=== PATIENT | female | born 1960 | race Two or more races ===

== ENCOUNTER 2022-02-12 07:32 | Emergency (ER) | payer MEDICARE, OTHER ==
[~2022-02-12] VITALS: Ht 152.4 cm; Wt 90.7 kg
[2022-02-12 07:32] VITALS: BP 159/95
--- NOTE | 2022-02-12 07:42 | NUR ---
BIBS C/O FEVER OF 104, HEADACHE, AND NON RADIATING CHEST PAIN SINCE SATURDAY. AAOX4, BREATHING EVEN AND UNLABORED, AFEBRILE UPON ADMISSION. VS STABLE. WILL CONTINUE TO MONITOR.
[2022-02-12] MEDS ORDERED: BENZ-13 PO (07:50)
--- NOTE | 2022-02-12 08:01 | NUR ---
COVID SAMPLE OBTAINED AND SENT TO LAB
--- NOTE | 2022-02-12 08:15 | NUR ---
Patient discharged to home in stable condition. Written and verbal after care instructions given. Patient verbalizes understanding of instruction.
== END 2022-02-12 08:16 | disposition home or self-care (01) ==
LOC: ER 07:45
DX: U07.1 COVID-19 (principal); I10 Essential (primary) hypertension; M19.90 Unspecified osteoarthritis, unspecified site
CPT/HCPCS: C9803; U0003

== ENCOUNTER 2022-03-11 08:46 | Emergency (ER) | payer MEDICARE, OTHER ==
[~2022-03-11] VITALS: Ht 152.4 cm; Wt 90.7 kg
[~2022-03-11 08:46] MED LIST: BENZ-13 PO
[2022-03-11 08:56] VITALS: BP 134/75
[2022-03-11] MEDS ORDERED: HYDROCODONE/APAP 5/325MG TABLET PO ONE (09:30)
--- NOTE | 2022-03-11 09:34 | NUR ---
CALLED [employer], STATED "HE IS ON HIS WAY".
[2022-03-11] MEDS ORDERED: HYDROCODONE/APAP 5/325MG TABLET ONE (09:35)
--- NOTE | 2022-03-11 09:38 | NUR ---
US TECH AT BEDSIDE FOR ULTRASOUND
[2022-03-11] MEDS ORDERED: HYDR-4209 PO (09:55)
--- NOTE | 2022-03-11 10:00 | NUR ---
Patient discharged to home in stable condition. Written and verbal after care instructions given. Patient verbalizes understanding of instruction.
== END 2022-03-11 10:05 | disposition home or self-care (01) ==
LOC: ER 09:13
DX: S86.912A Strain of unspecified muscle(s) and tendon(s) at lower leg level, left leg, initial encounter (principal); I10 Essential (primary) hypertension; M19.90 Unspecified osteoarthritis, unspecified site; Z79.899 Other long term (current) drug therapy; W16.512A Jumping or diving into swimming pool striking water surface causing other injury, initial encounter; Y93.89 Activity, other specified; Y92.34 Swimming pool (public) as the place of occurrence of the external cause; Y99.8 Other external cause status
CPT/HCPCS: 93971-TC

== ENCOUNTER → 2022-04-25 | Emergency (ER) | payer BC, MEDICARE, OTHER ==
[~2022-04-25] VITALS: Ht 152.4 cm; Wt 92.5 kg
[~2022-04-25] MED LIST changes: +CEFTRIAXONE 1 G in IV D5W 50 ML IV ONE; +CEFTRIAXONE 1GM BAG (ER ONLY) 50 ML IV ONE; +CIPR-262 PO; +HYDR-3972 PO; +HYDR-4209 PO; +HYDROCODONE/APAP 10/325MG TABLET ONE; +HYDROCODONE/APAP 10/325MG TABLET PO ONE; +IBUP-1955 PO; +IBUPROFEN 600 MG TABLET ONE; +IBUPROFEN 600 MG TABLET PO ONE; +IV NS 0.9% 1,000 ML BAG IV ONE; +MORPHINE SULFATE INJ 2 MG/ML DISP.SYRIN IV ONE; +MORPHINE SULFATE INJ 4 MG/ML DISP.SYRIN ONE; +ONDANSETRON HCL/PF 4 MG/2 ML VIAL IVP ONE; +ONDANSETRON HCL/PF 4 MG/2 ML VIAL ONE
--- NOTE | 2022-04-25 08:09 | NUR ---
BIBS, C/O AB PAIN LAST 3 WKS, RIGHT SIDE MOSTLY, HIT OF KIDNEY STONES, PAST 2 DAYS WORST PAIN HAS NAUSEA , NO EMESIS AT THIS TIME
--- NOTE | 2022-04-25 08:16 | NUR ---
RN DRAWING BLOOD CULTURES FOR LABS
--- NOTE | 2022-04-25 08:21 | NUR ---
PATIENT NOT ABLE TO PROVIDE URINE SAMPLE AT THIS TIME. AWARE
[2022-04-25 08:34] LABS: BASOPHILS % (AUTO) 0.6 % (0.0-2.0); EOSINOPHILS % (AUTO) 1.7 % (0.0-6.0); HEMATOCRIT 35 % (33-45); HEMOGLOBIN 11.7 g/dL (11.5-14.8); LYMPHOCYTES # (AUTO) 1.9 K/uL (0.8-4.8); LYMPHOCYTES % (AUTO) 24.9 % (20.0-44.0); MEAN CORPUSCULAR HGB CONC 33 g/dl (31.0-36.0); MEAN CORPUSCULAR VOLUME 91 fL (82-100); MONOCYTES # (AUTO) 0.6 K/uL (0.1-1.30); MONOCYTES % (AUTO) 8.6 % (2.0-12.0); NEUTROPHILS # (AUTO) 4.8 K/uL (1.8-8.9); NEUTROPHILS % (AUTO) 64.2 % (43.0-81.0); PLATELET COUNT (AUTO) 305 K/uL (150-450); RED BLOOD CELL COUNT(AUTO) 3.84 MIL/uL (4.0-5.2); WHITE BLOOD COUNT (AUTO) 7.5 K/uL (4.3-11.0)
[2022-04-25 09:02] LABS: CALCIUM, SERUM 8.5 mg/dL (8.5-10.1); CREATININE 0.8 mg/dL (0.6-1.3); POTASSIUM 4.1 mmol/L (3.5-5.1)
[2022-04-25 09:08] LABS: ALBUMIN 3.5 g/dL (3.4-5.0); BILIRUBIN,DIRECT 0.2 mg/dL (0.0-0.2); BILIRUBIN,TOTAL 0.7 mg/dL (0.2-1.0); TOTAL PROTEIN, SERUM 8.2 g/dL (6.4-8.2)
--- NOTE | 2022-04-25 09:44 | NUR ---
DR. PONCE FROM [facility] PAGED. WAITING FOR CALL BACK.
--- NOTE | 2022-04-25 09:48 | NUR ---
DR. PONCE EXCHANGE [phone]
[2022-04-25 09:52] LABS: BILIRUBIN,URINE NEGATIVE (NEGATIVE); COLOR,URINE YELLOW (YELLOW); LEUKOCYTE ESTERASE ,URINE SMALL (NEGATIVE); NITRITE, URINE POSITIVE (NEGATIVE); PROTEIN,URINE NEGATIVE (NEGATIVE); UGLUCOSE NEGATIVE (NEGATIVE); UROBILINOGEN,URINE 0.2 EU/dL (0.2)
[2022-04-25 10:10] LABS: BACTERIA,URINE 2+ /HPF (None Seen); WBC,URINE TOO NUMEROUS TO COUN /HPF (0-3)
[2022-04-25 11:52] VITALS: BP 124/82
== END | disposition home or self-care (01) ==
LOC: ER 08:06
DX: N13.30 Unspecified hydronephrosis (principal); N39.0 Urinary tract infection, site not specified; I10 Essential (primary) hypertension; M19.90 Unspecified osteoarthritis, unspecified site; Z98.890 Other specified postprocedural states
CPT/HCPCS: 99285; 74176; 96374; 96375; 96361; 85025; 80048; 87077; 87086; 83690; 80076; 87186; 81001; 36415; J2270; J0696 ×2; J2405; J7060

== ENCOUNTER 2025-01-03 16:35 | Emergency (ER) | payer OTHER, MEDICAID ==
[~2025-01-03] VITALS: Ht 149.9 cm; Wt 84.8 kg
[~2025-01-03 16:35] MED LIST changes: -CEFTRIAXONE 1 G in IV D5W 50 ML IV ONE; -CEFTRIAXONE 1GM BAG (ER ONLY) 50 ML IV ONE; -HYDROCODONE/APAP 10/325MG TABLET ONE; -HYDROCODONE/APAP 10/325MG TABLET PO ONE; -IBUPROFEN 600 MG TABLET ONE; -IBUPROFEN 600 MG TABLET PO ONE; -IV NS 0.9% 1,000 ML BAG IV ONE; -MORPHINE SULFATE INJ 2 MG/ML DISP.SYRIN IV ONE; -MORPHINE SULFATE INJ 4 MG/ML DISP.SYRIN ONE; -ONDANSETRON HCL/PF 4 MG/2 ML VIAL IVP ONE; -ONDANSETRON HCL/PF 4 MG/2 ML VIAL ONE
[2025-01-03] MEDS ORDERED: ACETAMINOPHEN ES 500 MG TABLET ONE (17:24)
[2025-01-03] MEDS: ACETAMINOPHEN ES 500 MG TABLET PO ONE (17:28)
[2025-01-03] MEDS ORDERED: oxyCODONE/APAP (5/325 MG) 1 UDTAB TABLET ONE (18:31)
[2025-01-03] MEDS: oxyCODONE/APAP (5/325 MG) 1 UDTAB TABLET PO ONE (18:36)
[2025-01-03 21:09] VITALS: BP 110/67; TEMP 98; O2SAT 99
== END 2025-01-03 21:10 | disposition home or self-care (01) ==
LOC: ER 16:50
DX: S62.391A Other fracture of second metacarpal bone, left hand, initial encounter for closed fracture (principal); I10 Essential (primary) hypertension; Z90.49 Acquired absence of other specified parts of digestive tract; W10.0XXA Fall (on)(from) escalator, initial encounter; Y93.89 Activity, other specified; Y92.89 Other specified places as the place of occurrence of the external cause; Y99.8 Other external cause status
CPT/HCPCS: 73130-TC; 73502; 73590-TC